=== PATIENT | female | born 1990 | race Caucasian/White ===

== ENCOUNTER 2016-12-03 09:43 | Emergency (ER) | payer OTHER, MEDICAID ==
[~2016-12-03] VITALS: Ht 154.9 cm; Wt 68.0 kg
[~2016-12-03 09:43] MED LIST: PRENCAP2
[2016-12-03 10:51] LABS: Basophils # (auto) 0.1 uL; DEFINITIVE VIEW TRANSMISSION; Eosinophils # (auto) 0.2 uL; Eosinophils % (auto) 2.5 % (0.0-7.0); Hematocrit 34.9 % (36.0-46.0); Hemoglobin 10.5 g/dL (12.2-16.2); Lymphocytes # (auto) 2.1 uL; Mean Corpuscular Hemoglobin 20.5 pg (28.0-32.0); Mean Corpuscular Hgb Conc. 30.2 g/dL (32.0-36.0); Mean Platelet Volume 8.2 fL (7.4-10.4); Monocytes # (auto) 0.5 uL; Monocytes % (auto) 6.5 % (0.0-12.0); Neutrophils # (auto) 4.6 uL; Platelet Count (auto) 375 10^3/uL (140-450); Red Cell Distribution Width 15.3 % (11.6-16.0); White Blood Cell 7.5 10^3/uL (4.4-10.8)
[2016-12-03] MEDS ORDERED: SODIUM CHLORIDE 0.9% 1,000 ML IV ONE (11:15)
[2016-12-03 12:03] LABS: BUN/Creatinine Ratio 10.7; Calcium 8.7 mg/dL (8.5-10.1); Magnesium 2.4 mg/dL (1.6-2.6); Potassium 3.7 mmol/L (3.5-5.1)
[2016-12-03 13:40] VITALS: BP 108/69
== END 2016-12-03 13:46 | disposition home or self-care (01) ==
LOC: ER 09:44
DX: O03.9 Complete or unspecified spontaneous abortion without complication (principal); O99.011 Anemia complicating pregnancy, first trimester; Z3A.00 Weeks of gestation of pregnancy not specified
CPT/HCPCS: 36415; 80048; 81025; 82962; 83735; 84702; 85025; 85049